=== PATIENT | female | born 1970 | race Hispanic/Latino ===

== ENCOUNTER 2020-01-06 12:40 | Emergency (ER) | payer SELFPAY ==
[~2020-01-06] VITALS: Ht 167.6 cm; Wt 85.7 kg
[~2020-01-06 12:40] MED LIST: CIPRO500 MG PO; COLACE100 M1 PO; FLAGYL500 MG PO; PEPCID20 MG PO; SENOKOT8.6 MG PO; SYNTHROID112 MCG PO; ULTRAM50 MG PO; ZOFRAN4 MG PO
[2020-01-06] MEDS ORDERED: ASPIRIN 81 MG CHEW TAB PO ONE (13:15)
--- NOTE | 2020-01-06 13:18 | Emergency Department Note ---
History of Present Illnes History of Present Illness Chief Complaint: Chest Pain History of Present Illness This is a 49 year old female . Historian: Patient Arrival Mode: Car Manager Hi Required: No Onset (how long ago): day(s) (3) Location: epigastric Quality: burning Radiation: Reports non-radiation Severity: moderate Onset quality: gradual Duration (how long): day(s) (3) Timing of current episode: constant Progression: worsening Relieving factors: none Exacerbating factors: none Associated symptoms: Reports denies other symptoms Treatments prior to arrival: none Past Medical/Family History Physician Review I have reviewed the patient's past medical and family history. Any updates have been documented here. Past Medical History Recent Fever: No Clinical Suspicion of Infectio: No New/Unexplained Change in Ment: No Past Medical History: Hypothyroidism, GERD Past Surgical History: Tubal Ligation, Other Surgery: X3 UTERINE ABLATION Social History Smoking Cessation: Never Smoker Any Illegal Drug Use: No TB Exposure/Symptoms: No Physically hurt or threatened: No Family History Family history of heart diseas: No Other Last Tetanus: NONE Any Pre-Existing Lines (PICC,: No Is patient up to date on immun: Yes Review of Systems ROS Narrative Patient is a 74 year old female that presents with epigastric pain that is burning with a lot of belching that started 3 days ago Review of Systems Constitutional: Reports no symptoms EENTM: Reports no symptoms Cardiovascular: Reports no symptoms Respiratory: Reports no symptoms Gastrointestinal: Reports abdominal pain Genitourinary: Reports no symptoms Musculoskeletal: Reports no symptoms Integumentary: Reports no symptoms Neurological: Reports no symptoms Psychological: Reports no symptoms Endocrine: Reports no symptoms Hematological/Lymphatic: Reports no symptoms Physical Exam Related Data Allergies: Coded Allergies: No Known Allergies (Unverified , 07/02/18) Triage Vital Signs Vital Signs Date Time Temp Pulse Resp B/P (MAP) Pulse Ox O2 Delivery O2 Flow Rate FiO2 01/06/20 13:04 98.4 118 18 127/82 100 Room Air Physical Exam CONSTITUTIONAL Constitutional: Present well-developed, Present well-nourished HENT HENT: Present normocephalic, Present atraumatic, Present oropharynx clear/moist, Present nose normal HENT L/R: Present left ext ear normal, Present right ext ear normal EYES Eyes: Reports PERRL, Reports conjunctivae normal NECK Neck: Present ROM normal PULMONARY Pulmonary: Present effort normal, Present breath sounds normal CARDIOVASCULAR Cardiovascular: Present regular rhythm, Present heart sounds normal, Present capillary refill normal, Present normal rate GASTROINTESTINAL Abdominal: Present soft, Present bowel sounds normal, Present tender (epigastric) GENITOURINARY Genitourinary: Present exam deferred SKIN Skin: Present warm, Present dry MUSCULOSKELETAL Musculoskeletal: Present ROM normal NEUROLOGICAL Neurological: Present alert, Present oriented x 3, Present no gross motor or sensory deficits PSYCHOLOGICAL Psychological: Present mood/affect normal, Present judgement normal Results Laboratory Lab results reviewed: Yes Imaging Imaging results reviewed: Yes Procedures 12 Lead ECG Interpretation ECG Interpretation : ECG: ECG 1 Manager Hi: Interpreted by ED physician Date: Jan 06, 2020 Time: 13:09 Prior ECG tracings: reviewed Rhythm: sinus tachycardia Rate: tachycardia BPM: 118 QRS axis: normal Assessment & Plan Medical Decision Making MDM Cardiac workup along with CXR to R/O SD Discussed with patient all results and DC treatment plan of protonix and FU with PCP and GI. All questions answered Reassessment Reassessment time: 15:35 Assessment & Plan Final Impression: (1) GERD without esophagitis (2) Abdominal pain Depart Disposition: HOME, SELF-CARE Last Vital Signs Date Time Temp Pulse Resp B/P (MAP) Pulse Ox O2 Delivery O2 Flow Rate FiO2 01/06/20 13:04 98.4 118 18 127/82 100 Room Air Home Meds Active Scripts Ciprofloxacin Hcl (CIPRO) 500 Mg Tablet, 500 MG PO Q12H for 5 Days, #30 TAB Prov:LUCY CHOWDARY MD 07/06/18 Metronidazole (FLAGYL) 500 Mg Tablet, 500 MG PO TID for 5 Days Prov:LUCY CHOWDARY MD 07/06/18 Tramadol Hcl (ULTRAM) 50 Mg Tablet, 50 MG PO Q6HR PRN for PAIN, #25 TAB Prov:LUCY CHOWDARY MD 07/06/18 Ondansetron Hcl* (ZOFRAN*) 4 Mg Tablet, 4 MG PO Q6H PRN for nausea/vomiting, #40 Prov:LCUY CHOWDARY MD 07/06/18 Famotidine (PEPCID) 20 Mg Tablet, 20 MG PO BID, #60 TAB Prov:LUCY CHOWDARY MD 07/06/18 Sennosides (SENOKOT) 8.6 Mg Tablet, 8.6 MG PO Q12HR for 30 Days Prov:LUCY CHOWDARY MD 07/06/18 Docusate Sodium (COLACE) 100 Mg Capsule, 100 MG PO Q12HR for 30 Days Prov:LUCY CHOWDARY MD 07/06/18 Reported Medications Levothyroxine Sodium (SYNTHROID) 112 Mcg Tablet, 112 MCG PO DAILY 07/02/18 SWATHI GRIGGS Jan 06, 2020 13:18
--- NOTE | 2020-01-06 13:57 | Diagnostic Imaging Report ---
EXAMINATION: CHEST SINGLE (PORTABLE) INDICATION: Chest pain COMPARISON: CT Abdomen/pelvis of 07/02/2018 FINDINGS: LINES/TUBES:None LUNGS:The lungs are well-inflated. No focal consolidation or pulmonary edema. PLEURA:No pleural effusion or pneumothorax. MEDIASTINUM: Large hiatal hernia. The cardiomediastinal silhouette appears normal in size and shape. BONES/SOFT TISSUES:No acute osseous injury. ABDOMEN:No free air under the diaphragm. IMPRESSION: No focal pneumonia or pulmonary edema. Large hiatal hernia. Signed by: Connie Garay MD on 01/06/2020 1:53 PM
[2020-01-06 14:45] LABS: BASOPHILS % 0.5 % (0.0-1.0); EOSINOPHILS # (AUTO) 0.1 (0.0-0.4); EOSINOPHILS % 0.6 % (0.0-6.0); HEMATOCRIT 44.1 % (34.2-44.1); LYMPHOCYTES % 22.3 % (18.0-39.1); MEAN CORPUSCULAR HEMOGLOBIN 27.7 pg (28-32); MEAN CORPUSCULAR HGB CONC 31.7 g/dL (31-35); MEAN CORPUSCULAR VOLUME 87.3 fL (81-99); MONOCYTES # (AUTO) 0.8 (0.2-0.8); MONOCYTES % 8.5 % (4.4-11.3); NEUTROPHILS % 67.6 % (38.7-80.0); PLATELET COUNT 405 x10e3/uL (140-360); RED BLOOD COUNT 5.05 x10e6/uL (3.6-5.1); RED CELL DISTRIBUTION WIDTH 12.6 % (11.7-14.4)
[2020-01-06 15:03] LABS: ALANINE AMINOTRANSFERASE 37 IU/L (0-55); ALBUMIN 4.4 g/dL (3.5-5.0); ALBUMIN/GLOBULIN RATIO 1.1 (0.8-2.0); ALKALINE PHOSPHATASE 82 IU/L (40-150); ANION GAP 13.3 mmol/L (8-16); BLOOD UREA NITROGEN 10 mg/dL (7-26); BUN/CREATININE RATIO 13 (6-25); CARBON DIOXIDE 27 mmol/L (22-29); CHLORIDE 106 mmol/L (98-107); CREATINE KINASE 56 IU/L (29-168); CREATININE, SERUM 0.78 mg/dL (0.57-1.11); EST GLOMERULAR FILTRATION RATE > 60 ML/MIN (60-); GLUCOSE 82 mg/dL (74-118); LIPASE 19 U/L (8-78); POTASSIUM 4.3 mmol/L (3.5-5.1); SODIUM 142 mmol/L (136-145)
== END 2020-01-06 15:49 | disposition home or self-care (01) ==
LOC: ER 14:43
DX: K21.9 Gastro-esophageal reflux disease without esophagitis (principal); R10.13 Epigastric pain; K44.9 Diaphragmatic hernia without obstruction or gangrene; E03.9 Hypothyroidism, unspecified
CPT/HCPCS: 36415; 71045; 80053; 82550; 82553; 83690; 84484; 85025; 93005; 99283

== ENCOUNTER 2021-05-13 11:30 | Emergency (ER) | payer OTHER ==
[~2021-05-13] VITALS: Ht 167.6 cm; Wt 85.7 kg
[2021-05-13] MEDS ORDERED: DIATRIZOATE MEGL/DIATRIZOA SOD 30 ML BTL PO ONE (12:45)
[2021-05-13] MEDS ORDERED: Morphine 4mg Syringe 4 MG/ML INJ IV PRN (15:30)
[2021-05-13] MEDS ORDERED: ONDANSETRON HCL INJ 2MG/ML 2ML 2 MG/ML VIAL IV PRN (15:30)
[2021-05-13] MEDS ORDERED: SODIUM CHLORIDE 0.9% 1000ML 1,000 ML IV SCH (15:30)
[2021-05-13] MEDS ORDERED: ONDANSETRON ODT4 MG PO (16:21)
[2021-05-13 16:35] VITALS: BP 98/59
== END 2021-05-13 16:38 | disposition home or self-care (01) ==
LOC: ER 12:03
DX: K31.89 Other diseases of stomach and duodenum (principal); K21.9 Gastro-esophageal reflux disease without esophagitis; E03.9 Hypothyroidism, unspecified
CPT/HCPCS: 74176; 99283

== ENCOUNTER → 2021-05-16 | Outpatient (CLI) | payer OTHER ==
[~2021-05-16] MED LIST changes: +ONDANSETRON ODT4 MG PO
== END ==
LOC: DX 07:55
PROVIDERS: ATTEND Surgery
DX: K44.9 Diaphragmatic hernia without obstruction or gangrene (principal); Z20.822 Contact with and (suspected) exposure to COVID-19
CPT/HCPCS: 74246; U0002

== ENCOUNTER 2021-06-27 07:08 | Inpatient (IN) | payer OTHER ==
[~2021-06-27] VITALS: Ht 167.6 cm; Wt 76.0 kg
[2021-06-27] VITALS (10 sets, daily range): BP systolic 91–123; BP diastolic 63–90
[~2021-06-27 07:08] MED LIST changes: +LEVOTHYROXINE88 MCG PO; +SUCRALFATE1 GM PO
[2021-06-27] MEDS ORDERED: BUPIVACAINE 0.25% 30ML SDV ONE (08:56)
[2021-06-27] MEDS ORDERED: SUGAMMADEX SODIUM 200 MG/2 ML VIAL IV ONE (11:38)
[2021-06-27] MEDS ORDERED: HYDROMORPHONE 1MG/1ML INJ ONE (11:39)
[2021-06-27] MEDS ORDERED: PHENYLEPHRINE HCL 1% 10 MG/ML VIAL ONE (12:08)
[2021-06-27] MEDS ORDERED: KETAMINE HCL INJ 50 MG/ML 10 ML VIAL ONE (12:32)
[2021-06-27] MEDS ORDERED: MIDAZOLAM HCL 2 MG/2 ML VIAL ONE (12:32)
[2021-06-27] MEDS ORDERED: FENTANYL CITRATE/PF 100MCG/2 ML INJ ONE (12:32)
[2021-06-27] MEDS: SODIUM CHLORIDE 0.9% 250ML IRRIG IR SCH ×3 (12:45→20:55)
[2021-06-27] MEDS ORDERED: NALOXONE HCL INJ 0.4 MG/ML AMP IV PRN (12:45)
[2021-06-27] MEDS ORDERED: ONDANSETRON HCL INJ 2MG/ML 2ML 2 MG/ML VIAL IV PRN (12:45)
[2021-06-27] MEDS: HYDROMORPHONE 0.2MG/ML-SOD CHL 30ML PCA SYRINGE IV PRN (13:00)
[2021-06-27] MEDS ORDERED: ROCURONIUM BROMIDE 10 MG/ML 5ML VIAL IV ONE (13:37)
[2021-06-27] MEDS ORDERED: SEVOFLURANE INHAL SOLN 250 ML PEN BTL ONE (13:37)
[2021-06-27] MEDS ORDERED: LIDOCAINE HCL 2% LOCAL INJ 5 ML SDV VIAL INJ ONE (13:37)
[2021-06-27] MEDS ORDERED: ONDANSETRON HCL INJ 2MG/ML 2ML 2 MG/ML VIAL ONE (13:37)
[2021-06-27] MEDS ORDERED: POVIDONE IODINE 0.05% 0.05 % ML PO ONE (13:37)
[2021-06-27] MEDS ORDERED: DEXAMETHASONE SOD PHOS INJ 4 MG/ML SDV ONE (13:37)
[2021-06-27] MEDS ORDERED: PROPOFOL IV EMULSION 10 MG/ML 20 ML VIAL ONE (13:37)
[2021-06-27 13:57] LABS: BASOPHILS % 0.2 % (0.0-1.0); HEMOGLOBIN 11.4 g/dL (12.0-16.0); LYMPHOCYTES # (AUTO) 1.5 (1.0-3.2); LYMPHOCYTES % 6.8 % (18.0-39.1); MEAN CORPUSCULAR HEMOGLOBIN 28.1 pg (28-32); MEAN CORPUSCULAR HGB CONC 30.8 g/dL (31-35); MEAN CORPUSCULAR VOLUME 91.4 fL (81-99); MONOCYTES % 4.4 % (4.4-11.3); NEUTROPHILS % 87.9 % (38.7-80.0); PLATELET COUNT 328 x10e3/uL (140-360); RED BLOOD COUNT 4.05 x10e6/uL (3.6-5.1); RED CELL DISTRIBUTION WIDTH 12.6 % (11.7-14.4)
[2021-06-27] MEDS: DEXTROSE 5%/LACTATED RINGERS 1,000 ML IV SCH ×2 (15:53→22:01)
[2021-06-27] MEDS: Cefazolin 1 GM in SODIUM CHLORIDE 0.9% 50ML 50 ML IV SCH (17:15)
[2021-06-28] VITALS (16 sets, daily range): BP systolic 96–126; BP diastolic 58–81
[2021-06-28] MEDS: HYDROMORPHONE 0.2MG/ML-SOD CHL 30ML PCA SYRINGE IV PRN (00:44)
[2021-06-28] MEDS: SODIUM CHLORIDE 0.9% 250ML IRRIG IR SCH ×6 (00:50→21:42)
[2021-06-28] MEDS: Cefazolin 1 GM in SODIUM CHLORIDE 0.9% 50ML 50 ML IV SCH (01:25)
[2021-06-28] MEDS: DEXTROSE 5%/LACTATED RINGERS 1,000 ML IV SCH ×4 (05:48→21:42)
[2021-06-28 07:53] LABS: BASOPHILS % 0.1 % (0.0-1.0); HEMATOCRIT 29.3 % (34.2-44.1); HEMOGLOBIN 9.2 g/dL (12.0-16.0); LYMPHOCYTES # (AUTO) 1.6 (1.0-3.2); LYMPHOCYTES % 6.6 % (18.0-39.1); MEAN CORPUSCULAR HGB CONC 31.4 g/dL (31-35); MEAN CORPUSCULAR VOLUME 89.3 fL (81-99); MONOCYTES # (AUTO) 2.1 (0.2-0.8); MONOCYTES % 8.8 % (4.4-11.3); NEUTROPHILS # (AUTO) 20.1 (2.1-6.9); PLATELET COUNT 332 x10e3/uL (140-360); RED BLOOD COUNT 3.28 x10e6/uL (3.6-5.1); RED CELL DISTRIBUTION WIDTH 12.7 % (11.7-14.4)
[2021-06-28 08:11] LABS: ANION GAP 10.4 mmol/L (8-16); CREATININE, SERUM 0.66 mg/dL (0.57-1.11); POTASSIUM 4.4 mmol/L (3.5-5.1)
[2021-06-28 08:57] LABS: LYMPHOCYTES % (MANUAL) 2 % (19-48); MONOCYTES % (MANUAL) 4 % (3.4-9.0); NEUTROPHILS % (MANUAL) 94 % (40-74); PLATELET ESTIMATE ADEQUATE; PLATELET MORPHOLOGY COMMENT NORMAL; RBC MORPHOLOGY COMMENT NORMAL
[2021-06-28] MEDS ORDERED: DIPHENHYDRAMINE HCL INJ 50 MG/ML VIAL IV PRN (13:15)
[2021-06-29] VITALS (7 sets, daily range): BP systolic 94–114; BP diastolic 57–66
[2021-06-29] MEDS: SODIUM CHLORIDE 0.9% 250ML IRRIG IR SCH ×7 (00:45→23:25)
[2021-06-29] MEDS: DEXTROSE 5%/LACTATED RINGERS 1,000 ML IV SCH ×3 (02:35→22:44)
[2021-06-29 09:50] LABS: ANION GAP 8.6 mmol/L (8-16); BLOOD UREA NITROGEN < 5 mg/dL (7-26); CALCIUM 7.8 mg/dL (8.4-10.2); CARBON DIOXIDE 29 mmol/L (22-29); CHLORIDE 107 mmol/L (98-107); CREATININE, SERUM 0.58 mg/dL (0.57-1.11); EST GLOMERULAR FILTRATION RATE 110 ML/MIN (60-); GLUCOSE 106 mg/dL (74-118); POTASSIUM 3.6 mmol/L (3.5-5.1); SODIUM 141 mmol/L (136-145)
[2021-06-29 09:52] LABS: BUN/CREATININE RATIO 9 (6-25)
[2021-06-29 09:53] LABS: BASOPHILS % 0.1 % (0.0-1.0); EOSINOPHILS % 0.1 % (0.0-6.0); LYMPHOCYTES # (AUTO) 3.3 (1.0-3.2); LYMPHOCYTES % 15.5 % (18.0-39.1); MEAN CORPUSCULAR HEMOGLOBIN 28.2 pg (28-32); MEAN CORPUSCULAR HGB CONC 31.2 g/dL (31-35); MEAN CORPUSCULAR VOLUME 90.3 fL (81-99); MONOCYTES # (AUTO) 1.5 (0.2-0.8); MONOCYTES % 7.1 % (4.4-11.3); NEUTROPHILS # (AUTO) 16.5 (2.1-6.9); NEUTROPHILS % 76.6 % (38.7-80.0); PLATELET COUNT 306 x10e3/uL (140-360); RED BLOOD COUNT 2.38 x10e6/uL (3.6-5.1); RED CELL DISTRIBUTION WIDTH 13.2 % (11.7-14.4)
[2021-06-29 09:58] LABS: HEMATOCRIT 21.5 % (34.2-44.1); HEMOGLOBIN 6.8 g/dL (12.0-16.0)
[2021-06-29 10:17] LABS: LYMPHOCYTES % (MANUAL) 8 % (19-48); MONOCYTES % (MANUAL) 5 % (3.4-9.0); NEUTROPHILS % (MANUAL) 87 % (40-74)
[2021-06-29 10:18] LABS: PLATELET ESTIMATE ADEQUATE; PLATELET MORPHOLOGY COMMENT NORMAL; RBC MORPHOLOGY COMMENT NORMAL
[2021-06-29] MEDS: SODIUM CHLORIDE 0.9% 250ML 250 ML IV ONE ×2 (12:04→18:32)
[2021-06-29] MEDS: HYDROMORPHONE 0.2MG/ML-SOD CHL 30ML PCA SYRINGE IV PRN (14:22)
[2021-06-29] MEDS ORDERED: SODIUM CHLORIDE 0.9% 250ML 250 ML ONE (17:51)
[2021-06-29] MEDS ORDERED: ACETAMINOPHEN 325 MG SUPP PR PRN (20:00)
[2021-06-29] MEDS ORDERED: SODIUM CHLORIDE 0.9% 500ML 500 ML ONE (22:54)
[2021-06-30] VITALS (7 sets, daily range): BP systolic 100–129; BP diastolic 63–70
[2021-06-30] MEDS: SODIUM CHLORIDE 0.9% 250ML IRRIG IR SCH ×6 (03:57→19:35)
[2021-06-30 08:43] LABS: BASOPHILS % 0.1 % (0.0-1.0); EOSINOPHILS # (AUTO) 0.1 (0.0-0.4); EOSINOPHILS % 0.3 % (0.0-6.0); HEMATOCRIT 28.7 % (34.2-44.1); LYMPHOCYTES # (AUTO) 1.7 (1.0-3.2); LYMPHOCYTES % 8.5 % (18.0-39.1); MEAN CORPUSCULAR HGB CONC 31.4 g/dL (31-35); MEAN CORPUSCULAR VOLUME 89.1 fL (81-99); MONOCYTES # (AUTO) 1.4 (0.2-0.8); MONOCYTES % 6.7 % (4.4-11.3); NEUTROPHILS # (AUTO) 17.2 (2.1-6.9); NEUTROPHILS % 83.6 % (38.7-80.0); PLATELET COUNT 301 x10e3/uL (140-360); RED BLOOD COUNT 3.22 x10e6/uL (3.6-5.1); RED CELL DISTRIBUTION WIDTH 13.3 % (11.7-14.4)
[2021-06-30 09:16] LABS: ALANINE AMINOTRANSFERASE 25 IU/L (0-55); ALBUMIN 2.4 g/dL (3.5-5.0); ALKALINE PHOSPHATASE 64 IU/L (40-150); ANION GAP 9.6 mmol/L (8-16); BLOOD UREA NITROGEN < 5 mg/dL (7-26); BUN/CREATININE RATIO 9 (6-25); CALCIUM 8.3 mg/dL (8.4-10.2); CARBON DIOXIDE 31 mmol/L (22-29); CHLORIDE 102 mmol/L (98-107); CREATININE, SERUM 0.53 mg/dL (0.57-1.11); EST GLOMERULAR FILTRATION RATE 122 ML/MIN (60-); GLUCOSE 102 mg/dL (74-118); POTASSIUM 3.6 mmol/L (3.5-5.1); SODIUM 139 mmol/L (136-145)
[2021-06-30] MEDS: DEXTROSE 5%/LACTATED RINGERS 1,000 ML IV SCH ×2 (10:56→21:56)
[2021-06-30] MEDS: HYDROMORPHONE 0.2MG/ML-SOD CHL 30ML PCA SYRINGE IV PRN (10:59)
[2021-06-30] MEDS: BISACODYL 10 MG SUPP PR SCH (21:05)
[2021-06-30] MEDS: HYDROMORPHONE 1MG/1ML INJ IV PRN (21:15)
[2021-07-01] VITALS (9 sets, daily range): BP systolic 100–116; BP diastolic 67–77
[2021-07-01] MEDS: HYDROMORPHONE 1MG/1ML INJ IV PRN (01:34)
[2021-07-01] MEDS: HYDROCODONE/APAP 7.5MG-325MG 1 EA TAB PO PRN ×4 (01:43→21:52)
[2021-07-01] MEDS: SODIUM CHLORIDE 0.9% 250ML IRRIG IR SCH (08:45)
[2021-07-01] MEDS: BISACODYL 10 MG SUPP PR SCH (08:48)
[2021-07-01] MEDS: DEXTROSE 5%/LACTATED RINGERS 1,000 ML IV SCH (08:48)
[2021-07-01] MEDS ORDERED: Morphine 4mg Syringe 4 MG/ML INJ IV PRN (10:30)
[2021-07-02 04:00] VITALS: BP 112/74
[2021-07-02] MEDS: HYDROCODONE/APAP 7.5MG-325MG 1 EA TAB PO PRN ×2 (06:32→12:38)
[2021-07-02 07:27] VITALS: BP 111/72
[2021-07-02 08:19] VITALS: BP 111/72
[2021-07-02 11:24] VITALS: BP 118/70
[2021-07-02] MEDS ORDERED: PNEUMOCOCCAL VACCINE POLYVALENT 23 MCG/0.5 ML VIAL IM ONE ×2 (14:00→15:00)
[2021-07-02] MEDS ORDERED: ONDANSETRON HCL 4 MG ORAL DISINTEGRATING TAB PO PRN (15:15)
[2021-07-02] MEDS ORDERED: PANTOPRAZOLE SOD 40 MG TABEC PO SCH (16:00)
== END 2021-07-02 15:11 | disposition home or self-care (01) | DRG 327 ==
LOC: OR 07:08 → PACU V 13:26 → ICU 14:55 → MED/SURG 06-28 15:20
PROVIDERS: ADMIT Surgery; ATTEND Surgery
PROC: 0DV40ZZ Restriction of Esophagogastric Junction, Open Approach (ICD-10-PCS; 2021-06-27)
PROC: 0DQ60ZZ Repair Stomach, Open Approach (ICD-10-PCS; 2021-06-27)
PROC: 0BQT0ZZ Repair Diaphragm, Open Approach (ICD-10-PCS; 2021-06-27)
PROC: 07TP0ZZ Resection of Spleen, Open Approach (ICD-10-PCS; 2021-06-27)
PROC: 0DNW0ZZ Release Peritoneum, Open Approach (ICD-10-PCS; 2021-06-27)
PROC: 0BQT0ZZ Repair Diaphragm, Open Approach (ICD-10-PCS; principal; 2021-06-27 09:00)
PROC: 30233N1 Transfusion of Nonautologous Red Blood Cells into Peripheral Vein, Percutaneous Approach (ICD-10-PCS; 2021-06-29)
DX: K44.0 Diaphragmatic hernia with obstruction, without gangrene (principal); D62 Acute posthemorrhagic anemia; E03.9 Hypothyroidism, unspecified; K21.9 Gastro-esophageal reflux disease without esophagitis; Z20.822 Contact with and (suspected) exposure to COVID-19; K31.89 Other diseases of stomach and duodenum; K66.0 Peritoneal adhesions (postprocedural) (postinfection); Z86.16 Personal history of COVID-19; Z23 Encounter for immunization
CPT/HCPCS: 36415; 80048; 80053; 81025; 85025; 86850; 86900; 86920; 88305; 90732; 94799; 96360; J0690; J1100; J1170; J1200; J2001; J2250; J2370; J2405; J3010; J7040; J7050; P9016

== ENCOUNTER 2024-01-07 13:09 | Emergency (ER) | payer OTHER ==
[~2024-01-07 13:09] MED LIST changes: +ACETAMINOPHEN-1 EAC4 PO
[2024-01-07 13:19] VITALS: PULSE 96; RESP 18; TEMP 100.7; O2SAT 98
== END 2024-01-07 13:35 | disposition home or self-care (01) ==
LOC: ER 13:21
DX: U07.1 COVID-19 (principal); R07.9 Chest pain, unspecified; E03.9 Hypothyroidism, unspecified
CPT/HCPCS: 99282